=== PATIENT | male | born 1960 | race Caucasian/White ===

== ENCOUNTER → 2020-09-23 | Outpatient (CLI) | payer BC, OTHER ==
[~2020-09-23] MED LIST: ADVIL200 M3 PO; ANTIVERT25 MG PO; ATIVAN1 MG PO; CIPROFLOXIN HC2.5 M1 OPHTHALMIC; MULTIVITAMINS1 EAC6 PO; NORCO 5-325 TA1 EACH PO; VALIUM5 MG PO; VITAMIN B-121000 MC2 SUBLING; VITAMIN E1000 UNIT PO; VITAMIN E450 M1 PO
== END ==
LOC: LAB 08:14
PROVIDERS: ATTEND Surgery
DX: Z01.812 Encounter for preprocedural laboratory examination (principal); Z20.822 Contact with and (suspected) exposure to COVID-19

== ENCOUNTER 2020-09-28 08:19 | Day surgery (SDC) | payer BC, OTHER ==
[~2020-09-28] VITALS: Ht 188 cm; Wt 108.9 kg
[2020-09-28 09:31] VITALS: BP 128/66
[2020-09-28] MEDS ORDERED: HYDROCODON-ACE1 EAC7 PO (11:47)
[2020-09-28 12:07] VITALS: BP 128/66
--- NOTE | 2020-09-29 14:37 | O ---
[facility] [place] [address] OPERATIVE REPORT Name: CYNTHIA ARAIZA Room #: DEP [facility]..#: [id number] Admission: 09/28/20 Attend Phys: Guido Goldstein MD Discharge: 09/28/20 Date of : 64 Report #: [id number] THIS REPORT FOR: cc: Andre Daley Steven F. DO Chu, Peter Y. MD ~ DATE OF SERVICE: 09/28/2020 PREOPERATIVE DIAGNOSIS: Large left back mass, possible lipoma measuring 6 x 6.5 cm. POSTOPERATIVE DIAGNOSIS: Large left back mass consistent with a huge sebaceous cyst. PROCEDURE PERFORMED: Excision of left back mass with overlying skin. ANESTHESIA: IV sedation, local 0.25% Marcaine, 30 mL was used. COMPLICATIONS: None. ESTIMATED BLOOD LOSS: 10 mL. PROCEDURE NOTE: With the patient under IV sedation, the left back was prepped and draped in sterile fashion. Local anesthetic was used to anesthetize the skin incision. An ellipse of skin was excised. Preoperatively, I thought this could be a lipoma. When I got into the OR, I felt this was too superficial for a lipoma in this area. There was a skin indentation which suggests this is a large sebaceous cyst. It was quite difficult to remove the skin off the cyst, so I excised most of the skin over the mass. This is in a longitudinal elliptical manner. The incision was made with a #15 blade. After incising through the skin, the normal area was dissected superiorly and inferiorly. Along the main mass, I could see the cyst. The cyst was excised completely, did not violate the skin. Cautery was used for hemostasis, also 4-0 PDS suture. The subcutaneous tissue was brought together as much as possible with 3-0 PDS. Skin was elevated mediolaterally to get more release of the skin. Skin was then brought together with 3-0 and 4-0 nylon suture. Antibiotic ointment, 4 x 4, tape was applied. The patient tolerated the procedure well. <ELECTRONICALLY SIGNED> By: Guido Goldstein MD 09/29/20 1437 [id number] Guido Goldstein MD /nt
--- NOTE | 2020-09-29 14:38 | O ---
[facility] [place] [address] OPERATIVE REPORT Name: CYNTHIA ARAIZA Room #: DEP [facility]..#: [id number] Admission: 09/28/20 Attend Phys: Guido Goldstein MD Discharge: 09/28/20 Date of : 64 Report #: [id number] THIS REPORT FOR: cc: Andre Daley Steven F. DO Chu, Peter Y. MD ~ DATE OF SERVICE: 09/28/2020 PREOPERATIVE DIAGNOSIS: Left mid back mass measuring 6 x 6.5 cm, possible lipoma. POSTOPERATIVE DIAGNOSIS: Left back mass huge sebaceous cyst. PROCEDURE PERFORMED: Excision of large mass in the left back. SURGEON: Guido Goldstein MD ANESTHESIA: IV sedation in the lateral position. COMPLICATIONS: None. ESTIMATED BLOOD LOSS: 10 mL. PROCEDURE NOTE: With the patient in the lateral position under IV sedation, the back was prepped and draped in sterile fashion. The lesion was slightly longitudinally oriented. Ellipse of skin was excised over the mass. I thought this could be a lipoma, but it was fairly superficial and somewhat attached to the skin. Also when the lesion was evaluated, there is a small dimpling in the center, which could represent a large sebaceous cyst connection to the skin. That is why the ellipse of skin was removed over it after local anesthetic was placed around this, approximately 30 mL of 0.25% Marcaine was injected. The skin was excised with a 15 blade. The upper corner was dissected free and then when I got to the area of the mass, it did look like a large sebaceous cyst. The cyst was encompassed and removed without violating it. The lesion was completely removed. Specimen was sent to pathology. The patient's skin was elevated ____ the skin to come together. Hemostasis obtained with cautery and also suture ligature. Subcutaneous tissue was brought together with 3-0 PDS ____. <ELECTRONICALLY SIGNED> By: Guido Goldstein MD 09/29/20 1438 1307 1321 Guido Goldstein MD /nt
--- NOTE | 2020-09-30 17:06 | PATH ---
[facility] [address] [place] [address] PATHOLOGY RPT PROCEDURE Name: JOSE GPAPITORICKIE MOHAN Room #: [place] [facility] [place].R.#: [id number] Admission: 09/28/20 Date of : 64 Discharge: 09/28/20 Report #: [id number] Path Case #: [id number] [facility] Accession Number: [id number] . 01 Material submitted: . back - BACK MASS . 01 Diagnosis: Skin, back mass, biopsy: - Epidermal inclusion cyst. - There is no evidence of atypia or malignancy. (SHA:andrea; 09/30/2020) MBR 09/30/2020 1301 Local . 01 Electronically signed: . Jarrod Covarrubias MD, Pathologist NPI- [id number] . 01 Gross description: . The specimen is received in formalin, labeled "Mcnally, Papito, back mass" and consists of an elliptical segment of pink-cavazos skin measuring 8.3 x 3.2 cm excised to a maximum depth of 3.8 cm. Sectioning reveals an intact cyst measuring 6.0 x 5.6 cm containing soft amorphous white-cavazos material. Hand Tool Filer tissue is submitted in A1. (SDY; 09/29/2020) SYU/SYU 09/29/2020 1501 Local . 01 Pathologist provided ICD-10: L72.0 . 01 CPT . 439828 Specimen Comment: A courtesy copy of this report has been sent to [phone], [phone] Specimen Comment: [id number] Specimen Comment: Report sent to / DR CLAROS Performed at: 01 [facility] [address] [place] [address] [address], [place], [place] [id number] MD Jarrod Covarrubias MD Phone: [phone]
== END 2020-09-28 12:40 | disposition home or self-care (01) ==
LOC: OR 08:19 → TBA 08:20 → OR 08:38
PROVIDERS: ATTEND Surgery
DX: L72.3 Sebaceous cyst (principal); M10.9 Gout, unspecified; F41.9 Anxiety disorder, unspecified; K21.9 Gastro-esophageal reflux disease without esophagitis; E66.9 Obesity, unspecified; F17.210 Nicotine dependence, cigarettes, uncomplicated; Z98.890 Other specified postprocedural states; Z79.899 Other long term (current) drug therapy; Z68.30 Body mass index [BMI] 30.0-30.9, adult; Z20.822 Contact with and (suspected) exposure to COVID-19
CPT/HCPCS: 50010; 50101; 50386; 50417; 56526; 56527; 62110; 62850; 70005